=== PATIENT | male | born 1980 | race Caucasian/White ===

== ENCOUNTER → 2016-04-24 | Day surgery (SDC) | payer BC ==
[~2016-04-24] MED LIST: BUPIVACAINE/EPINEPHRINE 0.25% 50 ML VIAL ONE; KETOROLAC TROMETHAMINE 30 MG/ML (IVP) VIAL IV PUSH ONE; LACTATED RINGER'S 1000 ML INJ 1,000 ML ONE; MEPERIDINE HCL 25 MG/ML VIAL ONE; MIDAZOLAM HCL 2 MG/2 ML VIAL ONE; ONDANSETRON HCL 4 MG/2 ML VIAL IV PUSH ONE; PROPOFOL 200 MG/20 ML AMP IV ONE; ceFAZolin 2 GM PREMIX 50 ML ONE
--- NOTE | 2016-04-24 12:39 | TN ---
cc: AUSTEN SCHWARTZ M.D. DATE OF SURGERY: 04/24/2016 PREOPERATIVE DIAGNOSIS Periumbilical hernia. POSTOPERATIVE DIAGNOSIS Umbilical and supraumbilical hernias. PROCEDURE Open repair umbilical and supraumbilical hernias with mesh. SURGEON Dr. Austen Schwartz ACCOUNTS CLERK MARIBEL Geronimo ANESTHESIA General. INDICATIONS This is a pleasant 35-year-old gentleman who has a long history of umbilical hernia which has recently become associated with increased activity discomfort. He was interested to proceed with operative repair. INTRAOPERATIVE FINDINGS Small umbilical hernia, 2 cm supraumbilical hernia. ESTIMATED BLOOD LOSS Less than 5 mL. This procedure was assisted by my nurse practitioner. The specific skill set of a nurse practitioner was necessary to officially complete the operation. It was medically necessary for my nurse practitioner to participate in the surgery. During the operation the manager surgical was at the back table providing appropriate instrumentation while my nurse practitioner was providing adequate visualization to assist in repair of the umbilical hernia. DESCRIPTION OF PROCEDURE IN DETAIL The patient was identified as Suman Suero, taken to the operating room and placed in supine position. Sequential compression devices were placed on bilateral lower extremities. Following the induction of adequate general anesthesia the patient's abdomen was prepped and draped in the usual sterile fashion with Betadine. A timeout procedure was performed. Following completion of the timeout procedure to everyone's satisfaction within the room, the proposed infraumbilical incision was made with a marking pen. Local anesthetic was used to inject in and around the umbilicus. The incision was carried out with a scalpel and hemostasis controlled with electrocautery. Dissection continued posteriorly lifting the umbilical skin off of herniated preperitoneal fatty tissue. Superior to the umbilical hernia defect about 0.5 cm was a second defect with a fair amount of herniated preperitoneal fatty tissue through the defect. The anterior fascia was circumferentially cleared around the defects and the defects were imbricated with interrupted inverted 0 Prolene sutures. A nice margin of normal fascia surrounding the closure was present for onlay mesh. A 7 x 10 cm piece of Atrium ProLite mesh was cut for a 3 x 6 inch piece and placed in the onlay position. It was held taut with eight separate 0 Ethibond sutures placed in each corner and then at the 12, 3, 6 and 9 o'clock positions. Irrigation ensued. There was no evidence of bleeding. The umbilicus was reformed with interrupted 2-0 Vicryl sutures. Skin was approximated with a running 4-0 Monocryl subcuticular suture. Dressings were applied with Mastisol, half-inch brown Steri-Strips, gauze and Tegaderm. The patient tolerated the procedure without apparent complication. Sponge, needle and instrument counts were correct at the end of the case. MD GELY Serna/KELSIE /11:46 AM /12:14 PM
== END | disposition home or self-care (01) ==
LOC: ESDC 09:03
PROVIDERS: ATTEND Surgery Trauma Surgery
DX: K42.9 Umbilical hernia without obstruction or gangrene (principal)
CPT/HCPCS: 00750; 49585; C1781; J0690; J1885; J2175; J2250; J2405; J3010; J7120